=== PATIENT | female | born 1940 | race Caucasian/White ===

== ENCOUNTER 2023-11-22 08:17 | Day surgery (SDC) | payer OTHER ==
[~2023-11-22] VITALS: Ht 162.6 cm; Wt 66.0 kg
[2023-11-22] VITALS (12 sets, daily range): BP systolic 75–154; BP diastolic 45–87; PULSE 17–93; RESP 10–16; TEMP 98; O2SAT 94–96
[2023-11-22] MEDS ORDERED: normal saline 1,000 ML IV SCH (08:50)
[2023-11-22] MEDS ORDERED: LORazepam 0.5 MG tablet PO PRN (08:50)
[2023-11-22] MEDS ORDERED: diphenhydrAMINE 25mg capsule PO PRN (08:50)
[2023-11-22] MEDS ORDERED: nitroGLYCERIN 0.4mg SUBLingual tab SL PRN ×2 (08:50→13:00)
[2023-11-22] MEDS ORDERED: ERGO400C PO (09:02)
[2023-11-22] MEDS ORDERED: NITR0.4T51 SL (09:02)
[2023-11-22] MEDS ORDERED: AMLO5TAB5 PO (09:02)
[2023-11-22] MEDS ORDERED: LIDOcaine 1% 30ml preserv. free vial ONE (09:49)
[2023-11-22] MEDS ORDERED: fentaNYL/PF 50MCG/1 ML 2ML syringe ONE (09:49)
[2023-11-22] MEDS ORDERED: midazolam 1 mg/ML 2ml injection ONE (09:49)
[2023-11-22] MEDS ORDERED: iohexol 350MG/ML 100ml bottle IV ONE ×2 (09:49→10:44)
[2023-11-22] MEDS ORDERED: iohexol 350 MG/ML 50ML vial IV ONE ×2 (09:49→10:31)
[2023-11-22 10:12] LABS: BASOPHILS # (AUTO) 0.1 X10'3 (0-0.2); EOSINOPHILS # (AUTO) 0.1 X10'3 (0-0.9); EOSINOPHILS % (AUTO) 2.1 % (0-6); HEMOGLOBIN 15.1 g/dl (12.0-16.0); LYMPHOCYTES # (AUTO) 1.7 X10'3 (1.1-4.8); LYMPHOCYTES % (AUTO) 25.3 % (21-51); MEAN CORPUSCULAR HEMOGLOBIN 30.8 PG (27.0-31.0); MEAN CORPUSCULAR HGB CONC 32.9 g/dL (33.0-36.5); MEAN CORPUSCULAR VOLUME 93.5 FL (78-98); MEAN PLATELET VOLUME 8.8 FL (7.4-10.4); MONOCYTES # (AUTO) 0.5 X10'3 (0-0.9); MONOCYTES % (AUTO) 8.2 % (2-12); NEUTROPHILS # (AUTO) 4.2 X10'3 (1.8-7.7); NEUTROPHILS % (AUTO) 63.4 % (42-75); PLATELET COUNT 249 X10'3 (140-440); RED BLOOD COUNT 4.92 X10'6 (4.20-5.60); RED CELL DISTRIBUTION WIDTH 14.4 % (11.5-14.5); WHITE BLOOD COUNT 6.6 X10'3 (4.5-11.0)
[2023-11-22 10:23] LABS: APTT 34 SECONDS (22-32); INR 0.9 INR; PROTHROMBIN TIME 10.1 SECONDS (9.0-12.0)
[2023-11-22 10:33] LABS: ALBUMIN 3.7 G/DL (3.4-5.0); ANION GAP 10 (8-16); BLOOD UREA NITROGEN 13 MG/DL (7-18); BUN/CREATININE RATIO 16.7 (10.0-20.0); CALCIUM 9.8 MG/DL (8.5-10.1); CHLORIDE 103 MMOL/L (99-107); CREATININE 0.78 MG/DL (0.40-0.90); FREE T4 (FREE THYROXINE) 1.03 NG/DL (0.73-1.40); GLUCOSE 91 MG/DL (70-104); POTASSIUM 3.8 MMOL/L (3.5-5.1); PRO BRAIN NATRIURETIC PEPTIDE 104 PG/ML (0-450); SODIUM 138 MMOL/L (135-145); TOTAL CARBON DIOXIDE 25.5 MMOL/L (24-32); eCRCL 46 ML/MIN; eGFR 70 ML/MIN
[2023-11-22] MEDS ORDERED: ondansetron/PF 4mg/2ml inj IV PRN (13:00)
[2023-11-22] MEDS ORDERED: HYDROcodone/acetaminophen 5mg/325mg tablet PO PRN (13:00)
[2023-11-22] MEDS ORDERED: OXAZEpam 15mg capsule PO PRN (13:00)
[2023-11-22] MEDS ORDERED: normal saline 1000ml 1,000 ML IV SCH (13:00)
[2023-11-22] MEDS ORDERED: HYDROcodone/acetaminophen 10/325mg tab PO PRN (13:00)
[2023-11-22] MEDS ORDERED: proCHLORperazine 10 MG/2 ml inj IV PRN (13:00)
== END 2023-11-22 18:20 | disposition home or self-care (01) ==
LOC: CATH LAB 08:17 → SSTAY O 18:20
PROVIDERS: ATTEND Internal Medicine Cardiovascular Disease
DX: I25.118 Atherosclerotic heart disease of native coronary artery with other forms of angina pectoris (principal); I34.0 Nonrheumatic mitral (valve) insufficiency; E03.9 Hypothyroidism, unspecified; K21.9 Gastro-esophageal reflux disease without esophagitis; I10 Essential (primary) hypertension; E78.5 Hyperlipidemia, unspecified; Z88.8 Allergy status to other drugs, medicaments and biological substances; Z88.5 Allergy status to narcotic agent; Z79.899 Other long term (current) drug therapy
CPT/HCPCS: 36415; 71046; 80048; 83880; 84439; 84480; 85025; 85610; 85730; 93005; 93458; 93567; 99152; J1644; J2250; J2405; J3010; J3490; J7030; Q0163; Q9967; 99153; A4314; A4615; A6258

== ENCOUNTER 2024-03-27 15:03 | Emergency (ER) | payer OTHER ==
[~2024-03-27] VITALS: Ht 165.1 cm; Wt 66.0 kg
[~2024-03-27 15:03] MED LIST: AMLO5TAB5 PO; B12; D3
[2024-03-27 15:08] VITALS: TEMP 98
[2024-03-27 19:46] VITALS: BP 147/72; PULSE 88; RESP 18; O2SAT 95
== END 2024-03-27 19:45 | disposition home or self-care (01) ==
LOC: ER 15:05
DX: R22.41 Localized swelling, mass and lump, right lower limb (principal); Z88.8 Allergy status to other drugs, medicaments and biological substances
CPT/HCPCS: 93971; 99284